=== PATIENT | male | born 1975 | race Asian ===

== ENCOUNTER 2018-03-28 20:59 | Emergency (ER) | END 2018-03-29 00:45 | disposition home or self-care (01) ==

== ENCOUNTER 2018-06-28 10:41 | Day surgery (SDC) | END 2018-06-28 16:20 | disposition home or self-care (01) ==

== ENCOUNTER 2019-06-16 07:26 | Emergency (ER) | payer BC ==
[~2019-06-16] VITALS: Ht 182.9 cm; Wt 110.2 kg
[~2019-06-16 07:26] MED LIST: ALLO300T2 PO; BEN25 PO; CETI10CA PO; EMPA10TA PO; FAMO-96 PO; LOSA50TA14 PO; METO-319 PO; PRED20TA PO; SIMV10TA PO
[2019-06-16 07:30] VITALS: BP 149/84; PULSE 83; RESP 14; Ht 182.9 cm; Wt 110.2 kg
--- NOTE | 2019-06-16 08:02 | ERD ---
ER Documentation Chief Complaint Chief Complaint Pt with rash to abdomen X 4 days. Taking benadryl for 2 days HPI Patient is a 44-year-old male, past medical history of hypertension, presents to the ER for concerns of a rash on his abdomen bilateral legs for the last 4 days. Patient states rash is itchy in nature. Patient has been taking Benadryl with minimal alleviation of symptoms. Patient denies any new creams, lotions, medications or environmental changes. Patient states he did eat crab legs before the symptoms started however he has had them in the past thus he is not sure if he has an allergy to them. Patient denies any lip swelling, tongue swelling, difficulty breathing, chest tightness, shortness of breath, fevers or chills. ROS All systems reviewed and are negative except as per history of present illness. Medications Home Meds Active Scripts Famotidine* (Pepcid*) 20 Mg Tablet, 20 MG PO BID for 10 Days, #20 TAB Prov:ELIOT ARREDONDO PA-C 06/16/19 Cetirizine Hcl* (Zyrtec*) 10 Mg Capsule, 10 MG PO DAILY, #10 TAB.CHEW Prov:ELIOT ARREDONDO PA-C 06/16/19 Diphenhydramine Hcl* (Benadryl*) 25 Mg Cap, 25 MG PO Q6, #30 CAP Prov:ELIOT ARREDONDO PA-C 06/16/19 Prednisone* (Prednisone*) 20 Mg Tab, 60 MG PO DAILY for 5 Days, TAB Prov:ELIOT ARREDONDO PA-C 06/16/19 Reported Medications Metoprolol Succinate* (Toprol XL*) 50 Mg Tab.er.24h, 50 MG PO DAILY, #30 TAB 06/28/18 Losartan Potassium* (Losartan Potassium*) 50 Mg Tablet, 50 MG PO DAILY, TAB 06/28/18 Simvastatin* (Zocor*) 10 Mg Tablet, 10 MG PO QHS, #30 TAB 06/28/18 Empagliflozin (Jardiance) 10 Mg Tablet, 10 MG PO DAILY, TAB 06/28/18 Allopurinol* (Allopurinol*) 300 Mg Tablet, 300 MG PO DAILY, TAB 06/28/18 Allergies Allergies: Coded Allergies: aspirin (Verified Allergy, Unknown, 06/28/18) PMhx/Soc History of Surgery: Yes (NEPHRECTOMY) Anesthesia Reaction: No Hx Neurological Disorder: No Hx Respiratory Disorders: No Hx Cardiac Disorders: Yes (HTN) Hx Psychiatric Problems: No Hx Miscellaneous Medical Probl: No Hx Alcohol Use: No Hx Substance Use: No Hx Tobacco Use: No FmHx Family History: No diabetes Physical Exam Vitals Vital Signs Date Temp Pulse Resp B/P (MAP) Pulse Ox O2 O2 Flow FiO2 Time Delivery Rate 06/16/19 98.2 83 14 149/84 95 07:30 (105) Physical Exam GENERAL: Well-developed, well-nourished male. Appears in no acute distress. Speaking in full sentences. HEAD: Normocephalic, atraumatic. EYES: Pupils are equally reactive bilaterally. EOMs grossly intact. No conjunctival erythema. ENT: Moist mucous membranes. No uvula deviation. No kissing tonsils. No lip swelling. No tongue swelling. Oropharynx is open and patient is tolerating secretions well. NECK: Supple. No meningismus. Normal range of motion of the neck. LUNG: Clear to auscultation bilaterally. No rhonchi, wheezing, rales or coarse b reath sounds. HEART: Regular rate and rhythm. No murmurs, rubs or gallops. EXTREMITIES: Equal pulses bilaterally. No peripheral clubbing, cyanosis or edema. No unilateral leg swelling. NEUROLOGIC: Alert and oriented. Moving all four extremities without any difficulty. Normal speech. Steady gait. SKIN: Erythematous plaque--like lesions noted on the patient's trunk as well as bilateral legs. Lesions are consistent with hives. Procedures/MDM MEDICAL DECISION MAKING: This is a 44-year-old male who presents the ER for concerns of a rash on his abdomen and legs for the last 4 days. Vital signs were reviewed. Patient was afebrile. Patient is not diabetic. Skin exam revealed hives. Patient had no lip swelling, tongue some, difficulty breathing, chest tightness or shortness of breath. Low suspicion for anaphylaxis. Patient is having likely an allergic reaction of unknown etiology. Patient encouraged to follow-up with ldr nurse for allergy testing. Strict anaphylaxis return precautions given. Low suspicion for necrotizing fasciitis, sepsis, gangrene, Rahul-Maximiliano syndrome, toxic epidural necrolysis, abscess, cellulitis, herpes zoster, viral exanthem, anaphylaxis, fungal infection, insect bite, impetigo, dermatitis. Patient was nontoxic, [id number] prior to discharge. PRESCRIPTIONS: Benadryl, Zyrtec, Pepcid, prednisone Patient advised not to take Benadryl when driving or operating any machinery. DISCHARGE: At this time, patient is stable for discharge and outpatient management. I have advised the patient to avoid any new products, creams or possible allergens. I have advised the patient to avoid scratching the lesions. I have instructed the patient to follow-up with his/her primary care physician in 1-2 days. If symptoms persist, patient may need to see a mft for further examinations and testing. I have instructed the patient to promptly return to the ER at any time for any new or worsening symptoms including increased pain, fever, redness, swelling, warmth, difficulty breathing or vomiting. The patient and/or family expressed understanding of and agreement with this plan. All questions were answered. Home care instructions were provided. Disclaimer: Inadvertent spelling and grammatical errors are likely due to EHR/di ctation software use and do not reflect on the overall quality of patient care. Also, please note that the electronic time recorded on this note does not necessarily reflect the actual time of the patient encounter. Departure Diagnosis: Primary Impression: Rash Condition: Fair Patient Instructions: Self-Care for Skin Rashes Referrals: SYD BRANCH (PCP) Additional Instructions: Return to the ER for any lip swelling, tongue swelling, difficulty breathing or chest tightness. Call your primary care doctor TOMORROW for an appointment during the next 1-2 days.See the doctor sooner or return here if your condition worsens before your appointment time. ELIOT ARREDONDO PA-C Jun 16, 2019 08:02
== END 2019-06-16 08:23 | disposition home or self-care (01) ==
LOC: FTE 07:26
DX: R21 Rash and other nonspecific skin eruption (principal); I10 Essential (primary) hypertension
CPT/HCPCS: 99283